=== PATIENT | female | born 1980 | race Two or more races ===

== ENCOUNTER 2025-02-28 01:34 | Emergency (ER) | payer SELFPAY ==
[~2025-02-28] VITALS: Ht 167.6 cm; Wt 63.6 kg
[2025-02-28 01:40] VITALS: BP 136/79; PULSE 78; RESP 18; TEMP 98.5; O2SAT 100
--- NOTE | 2025-02-28 01:52 | ED.PDOC ---
History of Present Illness HPI Comments 44 y/o F, with a history of anxiety, is BIBA from private residence for c/c anxiety attack. Per EMS report, patient states on having sudden anxiety attack onset after getting into a verbal altercation with a family member, earlier, this morning. Patient has a history of anxiety attack in the past which resolved on their own but reports on current one being different, due to no improvement with calming techniques use. Upon arrival to ED, patient reports on feeling better and denies having any further acute symptoms at this time. Time Seen by MD: 01:40 Reviewed Notes: Nurses Notes, Medications, Allergies Allergies: Coded Allergies: NO KNOWN ALLERGIES (Unverified , 02/28/25) Information Source: Patient, Emergency Med Personnel Mode of Arrival: EMS Past Medical History PAST MEDICAL HISTORY: Anxiety Surgical History: Denies all surgeries SIGN WIRER History: Denies all SIGN WIRER Hx Family History Family History: Unknown Social History Smoker: Non-Smoker Alcohol: Denies ETOH Use Drugs: Denies Drug Use Lives In: Home All Other Systems: Reviewed and Negative (Comprehensive systems review obtained and negative except for what is stated in the HPI.) Physical Exam General Appearance: Mild Distress, Normal HEENT: Normal ENT Inspection, Pharynx Normal, TMs Normal Neck: Full Range of Motion, Non-Tender, Normal, Normal Inspection Respiratory: Chest Non-Tender, Lungs Clear, No Accessory Muscle Use, No Respiratory Distress, Normal Breath Sounds Cardiovascular: No Edema, No JVD, No Murmur, No Gallop, Normal Peripheral Pulses, Regular Rate/Rhythm Breast Exam: Deferred Gastrointestinal: No Organomegaly, Non Tender, No Pulsatile Mass, Normal Bowel Sounds, Soft Genitalia: Deferred Pelvic: Deferred Rectal: Deferred Extremities: No calf tenderness, Normal capillary refill, Normal inspection, Normal range of motion, Non-tender, No pedal edema Musculoskeletal : Apperance: Normal 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 Was a procedure done?: No Differential Dx Considerations may include: anxiety, panic attack, hyperventilation, among others X-Ray, Labs, Meds, VS Vital Signs Date Time Temp Pulse Resp B/P (MAP) Pulse Ox O2 Delivery O2 Flow Rate FiO2 02/28/25 01:40 98.5 78 18 136/79 100 98.5 Time of 1ST Reevaluation: 02:10 Reevaluation 1ST: Unchanged Patient Education/Counseling: Diagnosis, Treatment, Need For Follow Up Family Education/Counseling: No Family Present SEPSIS Sepsis Screen Physician Orders Electrocardigram (02/28/25 01:48) Vital Signs Date Time Temp Pulse Resp B/P (MAP) Pulse Ox O2 Delivery O2 Flow Rate FiO2 02/28/25 01:40 98.5 78 18 136/79 100 98.5 Departure 1 Departure Time of Disposition: 03:00 Impression: Primary Impression: Palpitations Additional Impression: Stress reaction causing mixed disturbance of emotion and conduct Disposition: 01 HOME / SELF CARE / HOMELESS Condition: Stable Discharged With: Self Critical Care Note Critical Care Time?: No Stability Stability form required: No Heart Score Heart Score: Heart Score Response (Comments) Value History N/A 0 EKG N/A 0 Age N/A 0 Risk Factors N/A 0 Troponin N/A 0 Total 0 I personally scribed for NYASIA LOPEZ MD ([email or web address]) on 02/28/25 at 01:52. Electronically submitted by Stephane Turcios ([email or web address]). NYASIA LOPEZ MD Feb 28, 2025 01:52
== END 2025-02-28 02:01 | disposition left against medical advice (07) ==
LOC: ER 01:34 → EDBD 01:34 → ER 02:01
DX: F43.9 Reaction to severe stress, unspecified (principal); F41.0 Panic disorder [episodic paroxysmal anxiety]; R00.2 Palpitations